=== PATIENT | male | born 1945 | race Caucasian/White ===

== ENCOUNTER → 2018-04-09 | Outpatient (CLI) | payer MEDICARE, OTHER ==
[~2018-04-09] MED LIST: ASPI-757 PO; CELE-1 PO; CYC10 PO; FLEC50TA16 PO; LOR5/325 PO; LORA10CA3 PO; METO-233 PO; METO-235 PO; METO25TA23 PO; MOMR ENA; PNEU0.5D3 IM
--- NOTE | 2018-04-09 16:29 | RADIOLOGY IMAGING REPORT ---
FACILITY: [facility] PATIENT NAME: Kevin Sheehan : 1945 MR: [id number] V: [id number] EXAM DATE: ORDERING PHYSICIAN: TAHIR WHIPPLE TECHNOLOGIST: Location: [facility] [place] Patient: Kevin Sheehan : 1945 Visit/Account:[id number] Date of Sevice: 04/09/2018 EXAMINATION: VENOUS DOPP LOW RIGHT EXTREMIT COMPARISON: None Available HISTORY: Right leg pain. FINDINGS: Standard right lower extremity Doppler ultrasound with color flow and spectral analysis is performed. The common femoral, femoral, and popliteal veins are widely patent and compress appropriately. The v isualized calf veins and the proximal greater saphenous vein are patent. No popliteal fluid collection. The contralateral common femoral vein is patent. IMPRESSION: No right lower extremity deep venous thrombosis. Report Dictated By: Neo Jones MD at 04/09/2018 4:25 PM Report E-Signed By: Neo Jones MD at 04/09/2018 4:26 PM WSN:[id number]
== END ==
LOC: US 14:39
PROVIDERS: ATTEND Physician Assistant Medical
DX: M79.604 Pain in right leg (principal)

== ENCOUNTER → 2018-04-09 | Outpatient (REF) | payer MEDICARE, OTHER ==
[2018-04-09 14:47] LABS: PLATELET COUNT, AUTOMATED 236 K/uL (150-450)
[2018-04-09 14:56] LABS: INR 1.01
== END ==
PROVIDERS: ATTEND Physician Assistant Medical
DX: M79.604 Pain in right leg (principal)
CPT/HCPCS: 82040; 82247; 82310; 82374; 82435; 82565; 82947; 84075; 84132; 84155; 84295; 84450; 84460; 84520; 85025; 85610

== ENCOUNTER → 2018-06-26 | Outpatient (CLI) | payer MEDICARE, OTHER ==
[~2018-06-26] MED LIST changes: +LISI-362 PO
--- NOTE | 2018-06-26 15:14 | EKG ---
FACILITY: [facility] PATIENT NAME: DAILY LOCKHART : [id number] MR: [id number] V: [id number] EXAM DATE: ORDERING PHYSICIAN: CANDIDA GONZALEZ TECHNOLOGIST: JENIFER Test Reason : DIZZINESS Blood Pressure : / mmHG Vent. Rate : 047 BPM Atrial Rate : 047 BPM P-R Int : 254 ms QRS Dur : 088 ms QT Int : 446 ms P-R-T Axes : 056 -14 003 degrees QTc Int : 394 ms Sinus bradycardia with 1st degree AV block Otherwise normal ECG No previous ECGs available Confirmed by CANDIDA GONZALEZ ([id number]) on 06/26/2018 4:56:24 PM Referred By: Confirmed By:CANDIDA GONZALEZ
== END ==
LOC: RESP 09:08
PROVIDERS: ATTEND Internal Medicine
DX: Z02.9 Encounter for administrative examinations, unspecified (principal)

== ENCOUNTER → 2018-06-30 | Outpatient (CLI) | payer MEDICARE, OTHER ==
--- NOTE | 2018-07-01 14:44 | RT HOLTER TEST ---
FACILITY: [facility] PATIENT NAME: DAILY LOCKHART : [id number] MR: [id number] V: [id number] EXAM DATE: ORDERING PHYSICIAN: CANDIDA GONZALEZ TECHNOLOGIST: TS Hook-up date: 2018-06-30 10:00:00 Duration: 23:50:00 Test Indications: A-FIB / YASSINE Medications: TOPROL FLECANIDE 02755 QRS complexes 511 Ventricular ectopics which represent <1 % of total QRS comp. 73 Supraventricular ectopics which represent <1 % of total QRS comp. * Paced QRS complexes which represent % of total QRS comp. VENTRICULAR ECTOPY 484 Isolated 0 Bigeminal Cycles 12 Couplets 1 Runs 3 Beats in Runs 3 Beats LONGEST at 87 BPM at 23:24:50 2018-06-30 3 Beats FASTEST at 87 BPM at 23:24:50 2018-06-30 SUPRAVENTRICULAR ECTOPY 55 Isolated 5 Couplets 2 Runs 8 Beats in Runs 5 Beats LONGEST at 116 BPM at 21:46:10 2018-06-30 3 Beats FASTEST at 118 BPM at 12:11:10 2018-06-30 HEART RATES 40 MIN at 11:04:19 2018-06-30 54 AVG 81 MAX at 17:25:34 2018-06-30 LONGEST RR 2.000 secs at 19:35:58 2018-06-30 S-T LEVELS Channel 1 -12.800 mm MIN at 10:00:00 2018-06-30 -12.800 mm MAX at 10:00:00 2018-06-30 Rare supraventricular ectopy with a few couplets and a couple of short runs of three to five beats. Occasional ventricular ectopy with several couplets and one reported three beat run (no strip was lex ilable/provided). Sinus bradycardia was noted frequently during study. No tachycardia was recorded. One pause of almost exactly two seconds was recorded (associated with a premature ventricular complex ). Confirmed by ASTER JETT ([id number]) on 07/01/2018 2:42:50 PM Referred By: Overread By: ASTER JETT
== END ==
LOC: RESP 00:41
PROVIDERS: ATTEND Internal Medicine
DX: I49.3 Ventricular premature depolarization (principal); R00.1 Bradycardia, unspecified
CPT/HCPCS: 93225; 93226

== ENCOUNTER → 2019-03-26 | Outpatient (CLI) | payer MEDICARE, OTHER ==
[~2019-03-26] MED LIST changes: +REGADENOSON 0.4 MG/5 ML SYR ONE
--- NOTE | 2019-03-27 09:31 | RADIOLOGY IMAGING REPORT ---
FACILITY: [facility] - [place], [place] PATIENT NAME: Kevin Sheehan : 1945 MR: [id number] V: [id number] EXAM DATE: ORDERING PHYSICIAN: MINDY HAUSER TECHNOLOGIST: Location: [facility] - [place] Patient: Kevin Sheehan : 1945 Visit/Account:[id number] Date of Sevice: 03/26/2019 EXAMINATION: Single isotope SPECT imaging with regadenoson infusion and gated SPECT imaging. DATE OF EXAMINATION: 03/26/2019. DATE OF INTERPRETATION: 03/27/2019. REQUESTING PHYSICIAN: MINDY HAUSER. INDICATION: The patient is a 73-year-old male evaluated for chest pain. PROCEDURE: After informed consent the patient received an intravenous injection of 12.4 mCi of Tc-99 m sestamibi followed at an appropriate time interval by rest imaging. The patient then subsequently received an intravenous infusion of 0.4 mg of regadenoson per protocol without complication. Resting heart rate was 54 bpm with a peak heart rate of 75 bpm. Blood pressure at rest was 147 / 105 and fo llowing infusion was 154 / 93. Baseline EKG demonstrates sinus rhythm. There were no EKG changes of ischemia following infusion. Symptoms were nonspecific. The patient then received an intravenous i njection of 29.6 mCi of Tc-99m sestamibi followed by stress imaging. RAW DATA: Examination of the summed raw data revealed a good quality study. MYOCARDIAL PERFUSION: The tomographic images demonstrate normal myocardial perfusion with no evidenc e of infarct or ischemia. There is no TID. GATED IMAGES: The gated images demonstrate normal ejection fraction 70% with normal wall motion and thickening. IMPRESSION: 1. Nondiagnostic Lexiscan stress ECG 2. Normal myocardial perfusion scan. 3. Normal LV systolic function; LVEF 70%. 4. Based on the results of this exam, the patient appears to be at low risk for future cardiovascular events. Report Dictated By: Bernard Chacko at 03/27/2019 9:25 AM Report E-Signed By: Bernard Chacko at 03/27/2019 9:27 AM WSN:[id number]
== END ==
LOC: RESP 00:06
PROVIDERS: ATTEND Internal Medicine
DX: R07.9 Chest pain, unspecified (principal)
CPT/HCPCS: 78452; 93017; A9500; J2785